=== PATIENT | male | born 1965 | race Caucasian/White ===

== ENCOUNTER 2019-02-26 04:28 | Observation (INO) | payer BC ==
[~2019-02-26] VITALS: Ht 188 cm; Wt 111.1 kg
[~2019-02-26 04:28] MED LIST: GABAPENTIN PO; IBUPROFEN400 MG PO; JANUVIA100 MG PO; METFORMIN HCL500 MG PO; NEXIUM40 MG PO; ZETIA10 MG PO
--- OUTSIDE RECORDS SUMMARY | 2019-02-26 04:34 | XMS REPORT ---
Author Author [facility] Address Unknown Phone Unavailable Care Team Providers Care Outside Physical Damage Appraiser Name Role Phone Unavailable Unavailable Payers Payer Name Policy Type Policy Number Effective Date Expiration Date Problems This patient has no known problems. Allergies, Adverse Reactions, Alerts Allergy Name Allergy Type Status Severity Reaction(s) Onset Date Inactive Date Treating Clinician Comments tramadol DA Active SV 2018-08-06 00:00:00 tramadol DA Active SV 2018-08-04 00:00:00 No Known Allergies DA Active U 2012-08-25 00:00:00 Medications This patient has no known medications. Results Test Description Test Time Test Comments Text Results Atomic Results Result Comments - CT ABDOMEN W/O CONT 2018-10-29 13:26:00 Name: RICHARD TSANG [facility] : 1965 Age/S: 53 / M [address] [facility] Unit #: [id number] Loc: [place] [address] Phys: Richard Georges MD Acct: [id number] Dis Date: Status: REG CLI PHONE #: [phone] Exam Date: 10/29/2018 1252 FAX #: [phone] Reason: UMBILICAL HERNIA, POST OP PAIN EXAMS: CPT CODE: [id number] CT ABDOMEN W/O CONT 75059 HISTORY: Umbilical hernia postop pain. COMPARISON: None available. CT abdomen without contrast: Automated exposure control. The lung bases are clear. Hepatic parenchyma is unremarkable on this noncontrast exam. Gallbladder is without radiopaque stones. Liver measuring 17.2 cm. The spleen is unremarkable. The stomach distends incompletely however it is normal in appearance. Pancreas is unremarkable. Adrenals are normal. Both kidneys are free from hydroureteronephrosis. Left upper pole 2 to 3 mm calyceal stone. No pathologic adenopathy. Atherosclerotic change of the abdominal vasculature. No bowel obstruction or colitis or diverticulitis or enteritis. No free fluid or free air. Subcutaneous tissues and the musculature are normal in appearance. No umbilical hernia is noted. No spigelian hernia is noted. No lytic or blastic lesions noted within the bony skeleton. IMPRESSION: No spigelian of umbilical hernia. No bowel obstruction or colitis or diverticulitis or enteritis. Appendix is not visible but no inflammatory changes are noted. No hydroureteronephrosis with nonobstructing 3 to left upper pole calyceal stone. No free fluid or free air. at 1326 Reported and signed by: David Wade M.D. PAGE 1 Signed Report (CONTINUED) Name: RICHARD TSANG [facility] : 1965 Age/S: 53 / M [address] [facility] Unit #: [id number] Loc: [place] [address] Phys: Richard Georges MD Acct: [id number] Dis Date: Status: REG CLI PHONE #: [phone] Exam Date: 10/29/2018 1252 FAX #: [phone] Reason: UMBILICAL HERNIA, POST OP PAIN EXAMS: CPT CODE: [id number] CT ABDOMEN W/O CONT 64101 <Co ntinued> CC: Pedro Contreras; Richard Georges MD Technologist:Nuris Tello,RT(R),CT CTDI: DLP: Trnscb Date/Time: 10/29/2018 (1076) [email or web address] Orig Print D/T: S: 10/29/2018 (9017) CTDI: DLP: PAGE 2 Signed Report
--- OUTSIDE RECORDS SUMMARY | 2019-02-26 04:34 | XMS REPORT | Continuity of Care Document ---
Author Author [employer] Address Unknown Phone Unavailable Care Team Providers Care Mold Cleaning And Storage Supervisor Name Role Phone [employer] Unavailable Unavailable Problems Problem Status Onset Date Classification Date Reported Comments Source 724.1 - PAIN IN THORACI Active 01/25/2013 [facility] Medications No Data Provided for This Section Allergies, Adverse Reactions, Alerts No Known Medication Allergies Immunizations No Data Provided for This Section Results No Data Provided for This Section Pathology Reports No Data Provided for This Section Diagnostic Reports Report Value Date Source Ribs unilateral Multiple views of the left ribs Clinical indication: Rib cage pain Findings: Multiple views of the left ribs were obtained. There is no evidence of acute or chronic rib fracture. There is no left effusion, focal consolation or pneumothorax. Impression: Normal left rib series. 01/25/2013 [facility] Consultation Notes No Data Provided for This Section Discharge Summaries No Data Provided for This Section History and Physicals No Data Provided for This Section Vital Signs No Data Provided for This Section Encounters Location Location Details Encounter Type Encounter Number Reason For Visit Attending Provider ADM Date DC Date Status Source OD [id number] 724.1 - PAIN IN THORACI TAM JOYUILAR 01/25/2013 Active [facility] Procedures No Data Provided for This Section Assessment and Plan No Data Provided for This Section Plan of Care No Data Provided for This Section Social History No Data Provided for This Section Family History No Data Provided for This Section Advance Directives No Data Provided for This Section Functional Status No Data Provided for This Section
[2019-02-26 05:07] LABS: BASOPHILS # (AUTO) 0.1 (0.0-0.1); EOSINOPHILS # (AUTO) 0.3 (0.0-0.4); EOSINOPHILS % 4.1 % (0.0-6.0); HEMATOCRIT 43.1 % (38.2-49.6); HEMOGLOBIN 14.4 g/dL (14.0-18.0); LYMPHOCYTES # (AUTO) 2.8 (1.0-3.2); LYMPHOCYTES % 37.9 % (18.0-39.1); MEAN CORPUSCULAR HEMOGLOBIN 28.7 pg (28-32); MEAN CORPUSCULAR HGB CONC 33.4 g/dL (31-35); MONOCYTES # (AUTO) 0.6 (0.2-0.8); MONOCYTES % 8.2 % (4.4-11.3); NEUTROPHILS # (AUTO) 3.6 (2.1-6.9); NEUTROPHILS % 48.5 % (38.7-80.0); PLATELET COUNT 270 x10e3/uL (140-360); RED BLOOD COUNT 5.01 x10e6/uL (4.3-5.7); RED CELL DISTRIBUTION WIDTH 13.1 % (11.7-14.4)
[2019-02-26 05:27] LABS: ALBUMIN/GLOBULIN RATIO 1.1 (0.8-2.0); ANION GAP 13.7 mmol/L (8-16); CALCIUM 9.3 mg/dL (8.4-10.2); CREATININE, SERUM 1.33 mg/dL (0.72-1.25); POTASSIUM 3.7 mmol/L (3.5-5.1)
[2019-02-26 05:33] LABS: CREATINE KINASE MB 3.7 ng/mL (0-5.0)
--- NOTE | 2019-02-26 06:18 | Diagnostic Imaging Report ---
EXAMINATION: CHEST SINGLE (PORTABLE) INDICATION: Chest pain COMPARISON: Chest radiograph 11/21/2014 FINDINGS: AP view TUBES and LINES: None. LUNGS: Lungs are well inflated. Lungs are clear. There is mild prominence of the central pulmonary vasculature, consistent with pulmonary venous congestion. PLEURA: No pleural effusion or pneumothorax. HEART AND MEDIASTINUM: The cardiomediastinal silhouette is unremarkable. BONES AND SOFT TISSUES: No acute osseous lesion. Soft tissues are unremarkable. UPPER ABDOMEN: No free air under the diaphragm. IMPRESSION: Mild pulmonary vascular congestion. Signed by: Charlie Davis DO on 02/26/2019 6:15 AM
--- OUTSIDE RECORDS SUMMARY | 2019-02-26 06:39 | XMS REPORT | Continuity of Care Document ---
Author Author [employer] [facility] [employer] Address Unknown Phone Unavailable Care Team Providers Care Sheeter Waxer Operator Name Role Phone [employer] Unavailable Unavailable Problems Problem Status Onset Date Classification Date Reported Comments Source 724.1 - PAIN IN THORACI Active 01/25/2013 [facility] [place] Medications No Data Provided for This Section [...] pneumothorax. Impression: Normal left rib series. [facility]2013 [facility] [place] Consultation Notes No Data Provided for This Section Discharge Summaries No Data Provided for This Section History and Physicals No Data Provided for This Section Vital Signs No Data Provided for This Section Encounters Location Location Details Encounter Type Encounter Number Reason For Visit Attending Provider ADM Date DC Date Status Source OD [id number] 724.1 - PAIN IN THORACI TAM JOYUILAR 01/25/2013 Active [facility] [place] Procedures No Data Provided for This Section [...]
[2019-02-26] MEDS: ASPIRIN 81 MG ENTERIC COATED PO SCH ×2 (06:47→08:25)
[2019-02-26] MEDS ORDERED: FUROSEMIDE INJ 10 MG/ML 4 ML VIAL IV ONE (07:00)
[2019-02-26 08:10] VITALS: BP 162/92
[2019-02-26] MEDS: NITROGLYCERIN 0.4 MG SUBL SL PRN ×3 (08:10→10:50)
[2019-02-26 08:17] VITALS: BP 162/92
[2019-02-26 08:47] VITALS: BP 118/70
[2019-02-26] MEDS ORDERED: METFORMIN HCL500 M2 PO (10:45)
[2019-02-26] MEDS ORDERED: DEXTROSE 50% SYRINGE 50 ML IV PRN (11:00)
[2019-02-26] MEDS ORDERED: INFLUENZA VIRUS VAC SPLIT INJ 0.5 ML SYR IM ONE (11:30)
[2019-02-26] MEDS: INSULIN REGULAR, HUMAN 100 UNIT/1 ML 3ML VIAL SQ SCH ×3 (11:30→21:00)
[2019-02-26 12:13] VITALS: BP 132/78
--- NOTE | 2019-02-26 12:50 | NUR ---
SPOKE WITH DAUGHTER SKYLAR CALERO WHO STATES FAMILY HAS AGREED TO MED RESORT AND NOT ROGE Addendum: 02/26/19 at 1251 by Katy Champagne RN WRONG PT CHARTING
--- NOTE | 2019-02-26 13:00 | NUR ---
PT OFF FOR STRESS TEST AT THIS TIME
--- NOTE | 2019-02-26 15:24 | NUR ---
PT BACK FROM STRESS TEST AT THIS TIME
[2019-02-26 16:22] VITALS: BP 143/86
[2019-02-26 18:29] LABS: CHOL/HDL RATIO 6.8 (3.9-4.7)
--- NOTE | 2019-02-26 19:28 | NUR ---
PATIENT DENIES CHEST PAIN, HOWEVER HE C/O HEADACHE. NO PAIN MEDICATION ON FILE FOR HIM. CALLED AND SPOKE WITH DR ALARCON REGARDING THE HEADACHE, NEW ORDER RECEIVED FOR TYLENOL 650MG ORAL EVERY 6HOURS NEEDED FOR PAIN. WILL ADMINISTER THE MEDICATION ONCE THE ORDER HAS BEEN VERIFY BY THE PHARMACIST.
[2019-02-26] MEDS ORDERED: ACETAMINOPHEN 325 MG TAB PO PRN (19:45)
[2019-02-26 20:00] VITALS: BP 158/95
--- NOTE | 2019-02-26 20:12 | NUR ---
DR ALARCON SPEAKING WITH THE PATIENT AT THIS TIME REGARDING HIS STRESS TEST RESULT.
--- NOTE | 2019-02-26 21:41 | Myoview Stress Test ---
DATE OF STUDY: 02/26/2019 12:07:00 Stress Test - Treadmill ONLY PROCEDURE TITLE: Rest/stress single isotope SPECT imaging with exercise stress and gated SPECT imaging. INDICATION: Chest pain. PROCEDURE IN DETAIL: The patient performed treadmill exercise using a Zaid protocol, exercising for 10 minutes and 29 seconds to stage IV and completing estimated workload of 12.8 metabolic equivalents (METs). The resting heart rate was 74 beats per minute at rest and increased to 157 beats per minute at peak exercise, which was 95% of the maximum predicted heart rate. The resting blood pressure was 147/84 mmHg and increased to 187/114 mmHg, which is a normal response. The resting electrocardiogram demonstrated normal sinus rhythm. There were no ST-segment changes suggestive of myocardial ischemia. Myocardial perfusion imaging was performed at rest following the injection of 11 mCi of tetrofosmin. At peak pharmacologic effect, the patient was injected with 32 mCi of tetrofosmin. Gated post-stress tomographic imaging was performed. FINDINGS: The overall quality of study is fair. Left ventricular cavity is noted to be normal size on the rest and stress studies. SPECT images demonstrate a small mild perfusion defect in the basal inferior wall on stress images. Gated SPECT imaging reveals normal myocardial thickening and wall motion. So, the overall left ventricular ejection fraction was calculated to be 56%. IMPRESSION: Myocardial perfusion imaging is abnormal. There is a small area of ischemia in the inferior wall. Overall, left ventricular systolic function was normal without regional wall motion abnormalities. Martha Flowers MD ABS/MODL /[id number]
--- NOTE | 2019-02-26 23:58 | NUR ---
PATIENT IS ASLEEP, HE'S EASY TO AROUSE. NO RESPIRATORY DISTRESS OBSERVED, HE'S INSTRUCTED TO CALL FOR ASSISTANCE NEEDED.
[2019-02-27] VITALS: BP 160/89
--- NOTE | 2019-02-27 01:06 | History and Physical ---
REASON FOR ADMISSION: Chest pain. HISTORY OF PRESENT ILLNESS: This is a 53-year-old male with history of diabetes mellitus, and hyperlipidemia, who presents with complaints of chest pain. He reports this will come up from sleep at 3 a.m. He describes it as a pressure/sharp pain, 8/10 in severity associated with shortness of breath, the pain lasted hours. There was no radiation, nausea, or diaphoresis. He denies any edema, orthopnea, PND, or lightheadedness. REVIEW OF SYSTEMS: Negative except as per HPI. PAST MEDICAL HISTORY: 1. Diabetes mellitus. 2. Hyperlipidemia. PAST SURGICAL HISTORY: Hernia repair. ALLERGIES: PLEASE SEE EMR. MEDICATIONS: Please see medication list. SOCIAL HISTORY: He smokes a pack a day for the last 30 years. No alcohol or illicit drugs. FAMILY HISTORY: Pertinent for mother and brother with coronary artery disease and heart failure. PHYSICAL EXAMINATION: VITAL SIGNS: Temperature 97.6 degrees, pulse 73, respiratory rate 18, blood pressure 118/70, and oxygen saturation 98%. GENERAL: Awake, alert, well-developed, and well-nourished man, in no acute distress. HEENT: Normocephalic and atraumatic. Pupils equal. No scleral icterus. NECK: Supple. No thyromegaly or cervical lymphadenopathy. No carotid bruits. LUNGS: Clear to auscultation bilaterally. No wheeze or crackles. CARDIOVASCULAR: Normal rate. Regular rhythm. No murmur. Normal S1, S2. ABDOMEN: Soft and nontender. EXTREMITIES: No edema. NEUROLOGIC: Nonfocal exam. LABORATORY DATA: WBC 7.33, hemoglobin 14.4, hematocrit 43.1, and platelets 270. Sodium 135, potassium 3.7, chloride 101, CO2 of 24, BUN 9, and creatinine 1.33. Troponin 0.010. EKG, normal sinus rhythm, nonspecific T-wave abnormalities. Chest x-ray, mild pulmonary vascular congestion. IMPRESSION: 1. Chest pain. 2. Diabetes mellitus and hyperlipidemia. RECOMMENDATIONS: Trend cardiac markers to rule out myocardial infarction. Echocardiogram to evaluate for structural heart disease. Given risk factors, ischemic evaluation is warranted with nuclear stress test. Continue home cardiac medications. Check fasting lipid panel and hemoglobin A1c. Martha Flowers MD ABS/MODL /[id number]
--- NOTE | 2019-02-27 02:45 | NUR ---
ROUNDS MADE, PATIENT OBSERVED SOUNDLY ASLEEP WITHOUT RESPIRATORY DISTRESS. CALL LIGHT WITHIN EASY REACH.
[2019-02-27 04:00] VITALS: BP 120/77
[2019-02-27 06:35] LABS: CHOL/HDL RATIO 8.4 (3.9-4.7); CHOLESTEROL 259 MD/DL (0-199); HDL CHOLESTEROL 31 MG/DL (40-60); TRIGLYCERIDES 559 MG/DL (0-149)
[2019-02-27 06:38] LABS: CREATINE KINASE 123 IU/L (30-200)
[2019-02-27] MEDS ORDERED: PANTOPRAZOLE SOD 40 MG TABEC PO SCH (07:30)
[2019-02-27] MEDS: INSULIN REGULAR, HUMAN 100 UNIT/1 ML 3ML VIAL SQ SCH ×2 (07:30→11:30)
[2019-02-27 08:29] VITALS: BP 133/93
[2019-02-27 09:19] VITALS: BP 133/93
[2019-02-27] MEDS: ASPIRIN 81 MG ENTERIC COATED PO SCH (09:19)
[2019-02-27] MEDS ORDERED: LOSARTAN POTASS25 MG PO (11:31)
[2019-02-27] MEDS ORDERED: ASPIRIN EC81 MG PO (11:31)
[2019-02-27 11:50] VITALS: BP 151/87
--- NOTE | 2019-02-27 12:02 | NUR ---
DISCHARGE INSTRUCTIONS AND PRESCRIPTIONS GIVEN. PT VERBALIZED UNDERSTANDING IV DC PRESSURE DRESSING APPLIED AND TAPED PT IS READY FOR DC
--- NOTE | 2019-02-27 12:15 | NUR ---
PT OFF UNIT TO HOME
--- NOTE | 2019-02-27 20:36 | Discharge Summary ---
REASON FOR ADMISSION: Chest pain. DISCHARGE DIAGNOSIS: Chest pain. COMORBID CONDITIONS: 1. Diabetes mellitus. 2. Hyperlipidemia. HISTORY OF PRESENT ILLNESS AND HOSPITAL COURSE: This is a 53-year-old male with history of diabetes mellitus and hyperlipidemia, who presented with complaints of chest pain. He ruled out for myocardial infarction with serial cardiac biomarkers. Given his multiple risk factors, he underwent nuclear stress test, which suggested a small area of ischemia in the inferior wall as he was asymptomatic. The patient was discharged home to follow up for cardiac catheterization as an outpatient. The patient was started on appropriate medical therapy including a low-dose aspirin and antihypertensive therapy. The patient's cholesterol was noted to be significantly elevated. However, the patient reports history of statin intolerance and thus, no statin therapy was prescribed to the patient. He was discharged home in stable condition. DISCHARGE MEDICATIONS: Please see medication reconciliation. FOLLOWUP: Follow up in Cardiology Clinic with myself in two weeks. PHYSICAL EXAMINATION: VITAL SIGNS: Vitals reviewed. GENERAL: Awake, alert, in no acute distress. LUNGS: Clear to auscultation bilaterally. No wheeze or crackles. CARDIOVASCULAR: Normal rate, regular rhythm. No murmur. Normal S1, S2. ABDOMEN: Soft, nontender. EXTREMITIES: No edema. NEUROLOGIC: Nonfocal exam. Telemetry, normal sinus rhythm. Martha Flowers MD ABS/MODL /[id number]
[2019-03-03] MEDS ORDERED: LISINOPRIL10 MG PO (14:51)
== END 2019-02-27 12:05 | disposition home or self-care (01) ==
LOC: ER 04:28 → ERHOLD 06:36 → MED/SURG 07:29
PROVIDERS: ADMIT Internal Medicine Interventional Cardiology; ATTEND Internal Medicine Interventional Cardiology
DX: R07.9 Chest pain, unspecified (principal); R94.39 Abnormal result of other cardiovascular function study; E11.9 Type 2 diabetes mellitus without complications; E78.5 Hyperlipidemia, unspecified; Z82.49 Family history of ischemic heart disease and other diseases of the circulatory system; F17.210 Nicotine dependence, cigarettes, uncomplicated; Z79.82 Long term (current) use of aspirin; Z79.84 Long term (current) use of oral hypoglycemic drugs
CPT/HCPCS: 36415 ×2; 71045; 78452; 80048; 80053; 80061 ×2; 82550 ×2; 82553 ×2; 82948 ×2; 83036; 84484 ×2; 85025; 85379; 86140; 93005; 93017; 93306; 99284; A9502; G0378 ×2; J1940; S0164

== ENCOUNTER → 2019-03-04 | Day surgery (SDC) | payer BC ==
--- NOTE | 2019-03-03 09:15 | NUR ---
Notified Dr. Flowers via phone no labs ordered for patient. Dr. Flowers stated no new orders at this time and okay to use labs from previous hospital stay.
[~2019-03-04] VITALS: Ht 188 cm; Wt 111.1 kg
[2019-03-04] VITALS (8 sets, daily range): BP systolic 140–160; BP diastolic 60–107
[~2019-03-04] MED LIST changes: +ASPIRIN EC81 MG PO; +FENTANYL CITRATE/PF 100MCG/2 ML INJ ONE; +HEPARIN SOD (PORCINE) 1000 UNIT/ML 30ML ONE; +HEPARIN SOD/SOD CHLORIDE 2,000 ML ONE; +IOPAMIDOL 370 MG/ML 200 ML INFUS..BTL INJ ONE; +LIDOCAINE HCL 2% LOCAL 20 ML VIAL ONE; +LISINOPRIL10 MG PO; +LOSARTAN POTASS25 MG PO; +METFORMIN HCL500 M2 PO; +MIDAZOLAM HCL 2 MG/2 ML VIAL ONE; +NITROGLYCERIN/D5W 200 MCG/ML 250 ML ONE; +SODIUM CHLORIDE 0.9% 1000ML 1,000 ML ONE; +VERAPAMIL HCL 2.5 MG/ML 2 ML VIAL ONE
--- OUTSIDE RECORDS SUMMARY | 2019-03-04 06:27 | XMS REPORT | Continuity of Care Document ---
Author Author [employer] Organization [employer] Address Unknown Phone Unavailable Care Team Providers Care Retail Loss Prevention Officer Name Role Phone [employer] Unavailable Unavailable Problems Problem Status Onset Date Classification Date Reported Comments Source 724.1 - PAIN IN THORACI Active 01/25/2013 [facility] Medications No Data Provided for This Section [...] pneumothorax. Impression: Normal left rib series. [facility] [place] Consultation Notes No Data Provided for This Section Discharge Summaries No Data Provided for This Section History and Physicals No Data Provided for This Section Vital Signs No Data Provided for This Section Encounters Location Location Details Encounter Type Encounter Number Reason For Visit Attending Provider ADM Date DC Date Status Source OD [id number] 724.1 - PAIN IN THORACI TAM JOYUILAR 01/25/2013 Active [facility] [place] Procedures No Data Provided for This Section [...]
--- NOTE | 2019-03-04 09:04 | NUR ---
0904am Bedside report received from Myriam DORMAN.[facility] No fix Dr Lionel CARPENTER pending.Alert oriented and appropriate, PERRLA, respirations even and unlabored to room air. Pulses x4 extremities equal and strong. Pedal pulses PT/DP 4 palpable. Cap fill brisk < 3 sec. Rt groin Vascade dry and intact NO hematoma or oozing. Skin warm and dry integrity appears XXX. IV 20g to XXX presents healthy w/o s/s of infiltration or complaint. Abdomen soft and supple. pt offered toileting, denies need to urinate or defecate. No personal affects with patient. Family Maryjane Pt and family verbalizes understanding of POC. Currently w/o complaint of pain or need. Patient introduced to cath team and brief summary provided to team. Transferred to procedure table under own strength w/o duress. ds/rn
[2019-03-04 09:12] LABS: ANION GAP 12.9 mmol/L (8-16); BLOOD UREA NITROGEN 8 mg/dL (7-26); BUN/CREATININE RATIO 8 (6-25); CALCIUM 8.9 mg/dL (8.4-10.2); CARBON DIOXIDE 24 mmol/L (22-29); CHLORIDE 103 mmol/L (98-107); CREATININE, SERUM 1.04 mg/dL (0.72-1.25); EST GLOMERULAR FILTRATION RATE > 60 ML/MIN (60-); GLUCOSE 114 mg/dL (74-118); POTASSIUM 3.9 mmol/L (3.5-5.1); SODIUM 136 mmol/L (136-145)
--- NOTE | 2019-03-04 10:45 | NUR ---
1045am assisted pt to sitting position.Pt meets DC criteria right Vascade groin site assessed for s/s of complication and presence of hematoma. warm, dry, no discolor, and pulses present. IV removed from left hand. Distal tip appears intact. VS WNL. Pt denies pain, sob, or need at this time. Family here. Review of discharge paperwork and follow up instructions. verbalized understanding.Faxed results drawn in drop crew laborer BMP to Dr Flowers office per Md request. Confirmed with office staff,BMP results confirmed received. 1100am Pt to wheelchair and transported to front of hospital. Transferred to private vehicle under own strength w/o incident with DC papers.No gross issues pain pallor pressure or dysrhythmia.Aware of importance of f/o care. Denies co Cp or SOB. isidro/neal
--- NOTE | 2019-03-04 13:53 | Operative Report ---
DATE OF PROCEDURE: 03/04/2019 SURGEON: Martha Flowers MD PROCEDURE: 1. Selective coronary angiography x2. 2. Left heart catheterization. INDICATION: 1. Chest pain. 2. Abnormal nuclear stress test. SEDATION: 1. Midazolam 3 mg. 2. Fentanyl 75 mcg. INFORMED CONSENT: Informed consent was obtained and documented in the chart. PROCEDURE IN DETAIL: The patient was brought to the cardiac catheterization laboratory in a fasting state after written informed consent was obtained. Bilateral groins were prepped and draped in the usual sterile fashion. 1% lidocaine was infiltrated to achieve local anesthesia. Moderate sedation was given as above. The right femoral artery was accessed via micropuncture needle and a 5-Qatari sheath was placed via modified Seldinger technique. The 5-Qatari JL4 was inserted and advanced into the ascending aorta and used to cannulate the left main coronary artery under fluoroscopic guidance. Selective coronary angiography was performed. The JL4 was removed and a 5-Qatari JR4 was inserted and advanced into the ascending aorta and this was used to cannulate the right coronary artery under fluoroscopic guidance. Selective coronary angiography was performed. Next, the JR4 was removed and 5-Qatari pigtail was inserted and advanced into the ascending aorta and left ventricle under fluoroscopic guidance. Hemodynamic measurements were obtained. The pigtail catheter was removed. Angiogram of the right external iliac artery was performed and Vascade closure device was used to achieve hemostasis. There were no immediate procedure complications. FINDINGS: The left main coronary artery trifurcates into the left anterior descending, ramus, and circumflex arteries. The left anterior descending is a moderate-caliber vessel that wraps around the apex. There was no angiographic evidence of disease. The ramus is a moderate-caliber vessel that is without evidence of coronary artery disease. The OM gives rise to an OM1. There was no angiographic evidence of coronary artery disease noted. The right coronary artery is a moderate-caliber vessel which gives rise to the PDA and no angiographic evidence of disease was noted. LV pressure 132/6 mmHg. LVEDP 12 mmHg. There was no gradient on pullback. IMPRESSION: 1. Normal coronary arteries. 2. Normal LV filling pressures. RECOMMENDATIONS: Medical therapy and risk factor modification. Martha Flowers MD ABS/MODL /[id number]
== END | disposition home or self-care (01) ==
LOC: CATH LAB 06:23
PROVIDERS: ATTEND Internal Medicine
DX: R07.9 Chest pain, unspecified (principal); R94.39 Abnormal result of other cardiovascular function study; F17.210 Nicotine dependence, cigarettes, uncomplicated; E13.9 Other specified diabetes mellitus without complications; Z79.84 Long term (current) use of oral hypoglycemic drugs; Z79.82 Long term (current) use of aspirin
CPT/HCPCS: 36415; 80048; 93458; J1644; J2001; J2250; J3010; J7030; Q9967

== ENCOUNTER 2020-11-06 08:34 | Observation (INO) | payer BC ==
[~2020-11-06] VITALS: Ht 188 cm; Wt 102.5 kg
[~2020-11-06 08:34] MED LIST changes: -FENTANYL CITRATE/PF 100MCG/2 ML INJ ONE; -HEPARIN SOD (PORCINE) 1000 UNIT/ML 30ML ONE; -HEPARIN SOD/SOD CHLORIDE 2,000 ML ONE; -IOPAMIDOL 370 MG/ML 200 ML INFUS..BTL INJ ONE; -LIDOCAINE HCL 2% LOCAL 20 ML VIAL ONE; -MIDAZOLAM HCL 2 MG/2 ML VIAL ONE; -NITROGLYCERIN/D5W 200 MCG/ML 250 ML ONE; -SODIUM CHLORIDE 0.9% 1000ML 1,000 ML ONE; -VERAPAMIL HCL 2.5 MG/ML 2 ML VIAL ONE
[2020-11-06] MEDS ORDERED: PANTOPRAZOLE 40 MG 10ML VIAL IV STA (08:54)
[2020-11-06] MEDS ORDERED: SODIUM CHLORIDE 0.9% 1000ML 1,000 ML IV STA (08:54)
[2020-11-06 09:08] LABS: BASOPHILS # (AUTO) 0.1 (0.0-0.1); BASOPHILS % 0.8 % (0.0-1.0); EOSINOPHILS # (AUTO) 0.1 (0.0-0.4); EOSINOPHILS % 1.6 % (0.0-6.0); HEMATOCRIT 41.6 % (38.2-49.6); LYMPHOCYTES # (AUTO) 2.4 (1.0-3.2); LYMPHOCYTES % 26.9 % (18.0-39.1); MEAN CORPUSCULAR HEMOGLOBIN 28.6 pg (28-32); MEAN CORPUSCULAR HGB CONC 33.7 g/dL (31-35); MEAN CORPUSCULAR VOLUME 85.1 fL (81-99); MONOCYTES # (AUTO) 0.6 (0.2-0.8); MONOCYTES % 6.7 % (4.4-11.3); NEUTROPHILS # (AUTO) 5.6 (2.1-6.9); NEUTROPHILS % 63.7 % (38.7-80.0); PLATELET COUNT 232 x10e3/uL (140-360); RED BLOOD COUNT 4.89 x10e6/uL (4.3-5.7); RED CELL DISTRIBUTION WIDTH 12.6 % (11.7-14.4)
[2020-11-06] MEDS ORDERED: INSULIN REGULAR, HUMAN 100 UNIT/1 ML 3ML VIAL IV ONE (09:15)
[2020-11-06 09:16] LABS: INR 0.9; PROTHROMBIN TIME 12.7 seconds (11.9-14.5)
[2020-11-06 09:17] LABS: PARTIAL THROMBOPLASTIN TIME 26.9 seconds (23.8-35.5)
[2020-11-06 09:31] LABS: ALBUMIN 4.2 g/dL (3.5-5.0); ALBUMIN/GLOBULIN RATIO 1.1 (0.8-2.0); ANION GAP 16.3 mmol/L (8-16); CREATININE, SERUM 1.75 mg/dL (0.72-1.25); MAGNESIUM 1.8 MG/DL (1.3-2.1); POTASSIUM 4.3 mmol/L (3.5-5.1)
[2020-11-06 09:39] LABS: CREATINE KINASE MB 5.5 ng/mL (0-5.0)
[2020-11-06 10:07] LABS: CLARITY,URINE CLEAR (CLEAR); COLOR,URINE YELLOW (YELLOW); LEUKOCYTE ESTERASE ,URINE NEGATIVE (NEGATIVE)
[2020-11-06 10:08] LABS: KETONES,URINE 2+ (NEGATIVE); NITRITE,URINE NEGATIVE (NEGATIVE); PROTEIN,URINE DIPSTICK NEGATIVE (NEGATIVE); URINE UROBILINOGEN 0.2 mg/dL (0.2 - 1)
[2020-11-06 10:23] LABS: BACTERIA,URINE RARE /HPF; EPITHELIAL CELLS,URINE FEW /LPF; RBC,URINE 0-5 /HPF (0-5); WBC,URINE (MAN) 0-5 /HPF (0-5)
[2020-11-06] MEDS ORDERED: ONDANSETRON HCL INJ 2MG/ML 2ML 2 MG/ML VIAL IV PRN (10:30)
[2020-11-06] MEDS ORDERED: DEXTROSE 50% SYRINGE 50 ML IV PRN (10:30)
[2020-11-06] MEDS ORDERED: NITROGLYCERIN 0.4 MG SUBL SL PRN (10:30)
[2020-11-06] MEDS ORDERED: ASPIRIN 81 MG CHEW TAB PO ONE (10:45)
[2020-11-06] MEDS: SODIUM CHLORIDE 0.9% 1000ML 1,000 ML IV SCH ×2 (10:50→18:00)
[2020-11-06] MEDS ORDERED: ACETAMINOPHEN 325 MG TAB PO ONE (11:00)
[2020-11-06 11:30] VITALS: BP 147/104
[2020-11-06 12:11] VITALS: BP 147/104
[2020-11-06] MEDS: INSULIN LISPRO 100 UNIT/1 ML 3ML VIAL SQ SCH ×3 (13:04→20:38)
[2020-11-06] MEDS ORDERED: LOSARTAN POTASS50 MG PO (13:53)
[2020-11-06 14:05] VITALS: BP 119/73
[2020-11-06 15:25] LABS: CREATINE KINASE MB 4.7 ng/mL (0-5.0)
[2020-11-06 16:00] VITALS: BP 120/78
[2020-11-06] MEDS: MORPHINE SULFATE INJ 2 MG/ML SYR IV PRN ×2 (17:03→20:48)
[2020-11-06 20:00] VITALS: BP 129/80
[2020-11-06] MEDS: FAMOTIDINE 20 MG/2 ML VIAL IV SCH (20:35)
[2020-11-06 20:46] LABS: CREATINE KINASE MB 4.1 ng/mL (0-5.0)
[2020-11-06] MEDS ORDERED: INSULIN GLARGINE 100 UNITS/ML VIAL SQ SCH (21:00)
[2020-11-06 21:08] VITALS: BP 129/80
[2020-11-07] VITALS: BP 135/87
[2020-11-07 04:00] VITALS: BP 141/88
[2020-11-07] MEDS: MORPHINE SULFATE INJ 2 MG/ML SYR IV PRN (06:21)
[2020-11-07 06:32] LABS: BASOPHILS # (AUTO) 0.1 (0.0-0.1); BASOPHILS % 0.9 % (0.0-1.0); EOSINOPHILS # (AUTO) 0.2 (0.0-0.4); EOSINOPHILS % 3.2 % (0.0-6.0); HEMATOCRIT 38.1 % (38.2-49.6); HEMOGLOBIN 12.7 g/dL (14.0-18.0); LYMPHOCYTES # (AUTO) 2.6 (1.0-3.2); LYMPHOCYTES % 36.9 % (18.0-39.1); MEAN CORPUSCULAR HEMOGLOBIN 28.9 pg (28-32); MEAN CORPUSCULAR HGB CONC 33.3 g/dL (31-35); MEAN CORPUSCULAR VOLUME 86.8 fL (81-99); MONOCYTES # (AUTO) 0.5 (0.2-0.8); MONOCYTES % 7.3 % (4.4-11.3); NEUTROPHILS # (AUTO) 3.6 (2.1-6.9); NEUTROPHILS % 51.4 % (38.7-80.0); PLATELET COUNT 198 x10e3/uL (140-360); RED BLOOD COUNT 4.39 x10e6/uL (4.3-5.7); RED CELL DISTRIBUTION WIDTH 12.7 % (11.7-14.4)
[2020-11-07] MEDS: INSULIN LISPRO 100 UNIT/1 ML 3ML VIAL SQ SCH ×2 (07:30→11:30)
[2020-11-07] MEDS ORDERED: PANTOPRAZOLE SOD 40 MG TABEC PO SCH (07:30)
[2020-11-07] MEDS ORDERED: KETOROLAC TROMETHAMINE 30 MG/ML VIAL IV ONE (07:45)
[2020-11-07 07:56] LABS: ALANINE AMINOTRANSFERASE 28 IU/L (0-55); ALBUMIN 3.2 g/dL (3.5-5.0); ALKALINE PHOSPHATASE 88 IU/L (40-150); ANION GAP 12.9 mmol/L (8-16); BLOOD UREA NITROGEN 14 mg/dL (7-26); BUN/CREATININE RATIO 12 (6-25); CALCIUM 7.9 mg/dL (8.4-10.2); CARBON DIOXIDE 24 mmol/L (22-29); CHLORIDE 103 mmol/L (98-107); CHOL/HDL RATIO 7.6 (3.9-4.7); CHOLESTEROL 219 MD/DL (0-199); CREATININE, SERUM 1.19 mg/dL (0.72-1.25); EST GLOMERULAR FILTRATION RATE > 60 ML/MIN (60-); GLUCOSE 253 mg/dL (74-118); HDL CHOLESTEROL 29 MG/DL (40-60); LDL CHOLESTEROL 135 MG/DL (60-130); POTASSIUM 3.9 mmol/L (3.5-5.1); SODIUM 136 mmol/L (136-145); TRIGLYCERIDES 273 MG/DL (0-149)
[2020-11-07] MEDS: FAMOTIDINE 20 MG/2 ML VIAL IV SCH (07:57)
[2020-11-07 08:18] LABS: CREATINE KINASE MB 4.4 ng/mL (0-5.0)
[2020-11-07 08:35] VITALS: BP 150/97
[2020-11-07 08:36] VITALS: BP 150/97
[2020-11-07] MEDS ORDERED: ASPIRIN 81 MG ENTERIC COATED PO SCH ×2 (09:00)
[2020-11-07] MEDS ORDERED: NICOTINE 21 MG/EA PATCH TOP SCH (09:00)
[2020-11-07] MEDS ORDERED: LOSARTAN POTASSIUM 25 MG TAB PO SCH (09:00)
[2020-11-07 11:50] VITALS: BP 131/87
[2020-11-07] MEDS ORDERED: INSULIN GLARGINE 100 UNITS/ML VIAL SQ NR (13:45)
[2020-11-07] MEDS ORDERED: LANTUS 3ML100 UNITS/ SQ (14:31)
[2020-11-07] MEDS ORDERED: ATORVASTATIN CA40 MG PO (14:32)
== END 2020-11-07 14:56 | disposition home or self-care (01) ==
LOC: ER 09:11 → INTOOBSV 10:19 → ERHOLD 10:19 → IMCU 11:56
PROVIDERS: ADMIT Family Medicine; ATTEND Family Medicine
DX: E11.65 Type 2 diabetes mellitus with hyperglycemia (principal); R07.89 Other chest pain; K21.9 Gastro-esophageal reflux disease without esophagitis; E78.5 Hyperlipidemia, unspecified; F17.210 Nicotine dependence, cigarettes, uncomplicated; Z88.8 Allergy status to other drugs, medicaments and biological substances; Z82.49 Family history of ischemic heart disease and other diseases of the circulatory system; E66.9 Obesity, unspecified; I10 Essential (primary) hypertension; N17.9 Acute kidney failure, unspecified; K62.5 Hemorrhage of anus and rectum; Z20.822 Contact with and (suspected) exposure to COVID-19; Z68.29 Body mass index [BMI] 29.0-29.9, adult
CPT/HCPCS: 36415 ×2; 71045; 80053 ×2; 80061; 81001; 82550 ×2; 82553 ×2; 82948 ×2; 83036; 83735; 84484 ×2; 85025 ×2; 85610; 85730; 87086; 93005; 99284; C9113; G0378 ×2; J1815; J1885; J2270 ×2; J7030; S0164; U0002

== ENCOUNTER → 2021-12-20 | Outpatient (CLI) | payer BC ==
[~2021-12-20] MED LIST changes: +ATORVASTATIN CA40 MG PO; +AUGMENTIN 500-1 EACH PO; +IOPAMIDOL 370 MG/ML 100 ML INFUS..BTL INJ ONE; +LANTUS 3ML100 UNITS/ SQ; +LOSARTAN POTASS50 MG PO
[2021-12-20 08:15] LABS: CREATININE, SERUM 1.15 mg/dL (0.72-1.25)
== END ==
LOC: NM 07:07
PROVIDERS: ATTEND Urology
DX: C61 Malignant neoplasm of prostate (principal); R31.0 Gross hematuria
CPT/HCPCS: 36415; 71046; 74177; 78306; 82565; 84520; A9503; Q9967

== ENCOUNTER → 2021-12-25 | Day surgery (SDC) | payer BC ==
[~2021-12-25] MED LIST changes: +FENTANYL CITRATE/PF 100MCG/2 ML INJ ONE; +GLYCOPYRROLATE INJ 0.2 MG/ML VIAL ONE; +HYOSCYAMINE SULFATE 0.5 MG/ML INJ ONE; -IOPAMIDOL 370 MG/ML 100 ML INFUS..BTL INJ ONE; +MIDAZOLAM HCL 2 MG/2 ML VIAL ONE; +POVIDONE IODINE 0.05% 0.05 % ML PO ONE; +PROPOFOL IV EMULSION 10 MG/ML 20 ML VIAL ONE
[2021-12-25 14:52] VITALS: BP 113/72
== END | disposition home or self-care (01) ==
LOC: OR 12:32
PROVIDERS: ATTEND Internal Medicine Gastroenterology
DX: Z12.11 Encounter for screening for malignant neoplasm of colon (principal); D12.5 Benign neoplasm of sigmoid colon; K62.1 Rectal polyp; K57.30 Diverticulosis of large intestine without perforation or abscess without bleeding; K62.89 Other specified diseases of anus and rectum; K64.8 Other hemorrhoids; K64.5 Perianal venous thrombosis; K21.9 Gastro-esophageal reflux disease without esophagitis; Z71.3 Dietary counseling and surveillance; I10 Essential (primary) hypertension; E78.5 Hyperlipidemia, unspecified; E11.9 Type 2 diabetes mellitus without complications; F17.210 Nicotine dependence, cigarettes, uncomplicated; Z88.6 Allergy status to analgesic agent; Z01.810 Encounter for preprocedural cardiovascular examination; Z01.812 Encounter for preprocedural laboratory examination; Z20.822 Contact with and (suspected) exposure to COVID-19; Z79.82 Long term (current) use of aspirin; Z79.4 Long term (current) use of insulin; Z79.899 Other long term (current) drug therapy; Z85.46 Personal history of malignant neoplasm of prostate; Z80.0 Family history of malignant neoplasm of digestive organs
CPT/HCPCS: 36415; 45380; 45385; 82948; 93005; J1980; J2250; J2704; J3010; U0002

== ENCOUNTER 2024-03-03 08:10 | Emergency (ER) | payer BC ==
[~2024-03-03] VITALS: Ht 188 cm; Wt 102.5 kg
[2024-03-03 08:10] VITALS: TEMP 98.5
[~2024-03-03 08:10] MED LIST changes: +ANUSOL-HC25 MG RC; -FENTANYL CITRATE/PF 100MCG/2 ML INJ ONE; -GLYCOPYRROLATE INJ 0.2 MG/ML VIAL ONE; -HYOSCYAMINE SULFATE 0.5 MG/ML INJ ONE; -MIDAZOLAM HCL 2 MG/2 ML VIAL ONE; -POVIDONE IODINE 0.05% 0.05 % ML PO ONE; -PROPOFOL IV EMULSION 10 MG/ML 20 ML VIAL ONE
[2024-03-03 08:34] LABS: BASOPHILS # (AUTO) 0.1 (0.0-0.1); BASOPHILS % 0.8 % (0.0-1.0); EOSINOPHILS # (AUTO) 0.2 (0.0-0.4); EOSINOPHILS % 2.8 % (0.0-6.0); HEMATOCRIT 43.7 % (38.2-49.6); LYMPHOCYTES # (AUTO) 2.7 (1.0-3.2); LYMPHOCYTES % 37.1 % (18.0-39.1); MEAN CORPUSCULAR HEMOGLOBIN 27.1 pg (28-32); MEAN CORPUSCULAR VOLUME 84.7 fL (81-99); MONOCYTES # (AUTO) 0.7 (0.2-0.8); MONOCYTES % 9.7 % (4.4-11.3); NEUTROPHILS # (AUTO) 3.6 (2.1-6.9); NEUTROPHILS % 49.5 % (38.7-80.0); PLATELET COUNT 277 x10e3/uL (140-360); RED BLOOD COUNT 5.16 x10e6/uL (4.3-5.7); RED CELL DISTRIBUTION WIDTH 14.7 % (11.7-14.4)
[2024-03-03 08:47] LABS: INR 0.86; PARTIAL THROMBOPLASTIN TIME 30.3 seconds (23.8-35.5); PROTHROMBIN TIME 12.4 seconds (11.9-14.5)
[2024-03-03 08:57] LABS: ALANINE AMINOTRANSFERASE 31 IU/L (0-55); ALBUMIN 3.9 g/dL (3.5-5.0); ALBUMIN/GLOBULIN RATIO 1.1 (0.8-2.0); ALKALINE PHOSPHATASE 103 IU/L (40-150); ANION GAP 15.1 mmol/L (8-16); BILIRUBIN,TOTAL 0.4 mg/dL (0.2-1.2); BLOOD UREA NITROGEN 10 mg/dL (7-26); BUN/CREATININE RATIO 7 (6-25); CALCIUM 9.2 mg/dL (8.4-10.2); CARBON DIOXIDE 22 mmol/L (22-29); CHLORIDE 104 mmol/L (98-107); CREATINE KINASE 364 IU/L (30-200); CREATININE, SERUM 1.43 mg/dL (0.72-1.25); EST GLOMERULAR FILTRATION RATE 56 ML/MIN (>=60); GLUCOSE 168 mg/dL (74-118); POTASSIUM 4.1 mmol/L (3.5-5.1); SODIUM 137 mmol/L (136-145); TOTAL PROTEIN 7.5 g/dL (6.5-8.1)
[2024-03-03 09:34] LABS: THYROID STIMULATING HORMONE 1.125 uIU/mL (0.350-4.940)
[2024-03-03 09:36] LABS: TROPONIN I < 0.001 ng/mL (0-0.300)
[2024-03-03] MEDS: SODIUM CHLORIDE 0.9% 500ML 500 ML IV ONE (09:36)
[2024-03-03 09:37] VITALS: BP 159/109; PULSE 97
[2024-03-03] MEDS: METOPROLOL TARTRATE 25 MG TAB PO ONE (09:37)
[2024-03-03] MEDS: METOPROLOL TARTRATE INJ 1 MG/ML VIAL IV ONE (09:37)
[2024-03-03] MEDS: ENOXAPARIN SODIUM INJ 100 MG/ML SYR SC ONE (10:39)
[2024-03-03 10:52] VITALS: PULSE 84; RESP 16; O2SAT 97
== END 2024-03-03 11:43 | disposition other institution (70) ==
LOC: ER 08:23
DX: I48.20 Chronic atrial fibrillation, unspecified (principal); R07.9 Chest pain, unspecified; R20.2 Paresthesia of skin; N28.9 Disorder of kidney and ureter, unspecified; Z11.52 Encounter for screening for COVID-19; R94.31 Abnormal electrocardiogram [ECG] [EKG]
CPT/HCPCS: 36415; 70450; 71045; 80053; 82550; 83735; 83880; 84443; 84484; 85025; 85610; 85730; 93005; 99284; J1650; J7040; U0002